=== PATIENT | female | born 1945 | race Caucasian/White ===

== ENCOUNTER → 2018-09-27 | Outpatient (CLI) | payer MEDICAID ==
[2018-09-27 15:19] LABS: ALANINE AMINOTRANSFERASE 17 U/L (0-55); ALKALINE PHOSPHATASE 78 U/L (40-136); BILIRUBIN,TOTAL 0.2 MG/DL (0.1-1.0); BUN/CREATININE RATIO 25; CALCIUM 9.5 MG/DL (8.5-10.1); CARBON DIOXIDE 30 MMOL/L (21-32); CHLORIDE 98 MMOL/L (98-107); CREATININE SERUM 0.61 MG/DL (0.60-1.30); GFR ESTIMATED > 60; GLUCOSE 106 MG/DL (70-105); POTASSIUM 3.9 MMOL/L (3.6-5.0); SODIUM 139 MMOL/L (135-145)
[2018-09-27 15:20] LABS: ALBUMIN 4.1 GM/DL (3.2-4.5)
[2018-09-27 20:28] LABS: CHOLESTEROL 150 MG/DL (< 200); HDL CHOLESTEROL 49 MG/DL (40-60); TRIGLYCERIDES 106 MG/DL (<150); VLDL CHOLESTEROL 21 MG/DL (5-40)
== END ==
LOC: LAB FS 13:29
PROVIDERS: ATTEND Pediatrics
DX: E78.00 Pure hypercholesterolemia, unspecified (principal)
CPT/HCPCS: 36415; 80053; 80061

== ENCOUNTER → 2021-11-18 | Outpatient (CLI) | payer MEDICAID ==
--- NOTE | 2021-11-18 11:02 | Diagnostic Imaging Report ---
INDICATION: Pelvic pain. Time of Exam: 10:11 AM Femoral acetabular alignment is normal bilaterally. Both femoral heads and necks are intact. Rami are intact. No fractures are seen. IMPRESSION: No acute abnormality is detected. Dictated by: Dictated on workstation # [id number]
--- NOTE | 2021-11-18 11:45 | Diagnostic Imaging Report ---
INDICATION: Back pain. TIME OF EXAM: 10:12 a.m. TECHNIQUE: Three views of the lumbar spine were obtained. FINDINGS: Curvature and alignment is normal. Lumbar vertebral body heights are well maintained without evidence of an acute compression fracture. There is some degenerative disc disease at the L2-L3 level with mild disc space narrowing. The aorta is heavily calcified. There does appear to be some wedging of the T12 vertebral body, not well seen on this study. IMPRESSION: Lumbar spondylosis without acute compression fracture. There does appear to be some anterior wedging of the T12 vertebral body, age indeterminate. If there is concern for compression fracture, MRI could be performed for further evaluation. Dictated by: Dictated on workstation # [id number]
== END ==
LOC: RAD FS 09:44
PROVIDERS: ATTEND Nurse Practitioner
DX: M47.816 Spondylosis without myelopathy or radiculopathy, lumbar region (principal); R10.2 Pelvic and perineal pain
CPT/HCPCS: 72100; 72170

== ENCOUNTER 2021-11-26 17:42 | Emergency (ER) | payer MEDICAID ==
[~2021-11-26] VITALS: Ht 165 cm; Wt 65.0 kg
[2021-11-26 17:50] VITALS: BP 141/76
--- NOTE | 2021-11-26 17:56 | ED Lower Extremity ---
General Chief Complaint: Back Problems Stated Complaint: L SIDE HIP PAIN Nursing Triage Note: Patient has presented by EMS with cc of left lower back pain, left hip pain, going down left leg. Patient reports that 12 days ago her commode broke and she strained getting back into the wheel chair. She has seen Kyaw Penny 10 days ago and went to therapy today. SHe has been taking hydrocodone for the pain. Source: patient, EMS Exam Limitations: no limitations History of Present Illness Date Seen by Provider: Nov 26, 2021 Time Seen by Provider: 17:45 Initial Comments 76-year-old female with past medical history of chronic orthopedic pain coming in due to left hip pain. Started over 10 days ago after she slipped on a commode. She saw Kywa Penny and had x-rays obtained. She has been going to therapy which has not helped much. Taking hydrocodone for the pain and had Tylenol recently as well. She says she does not want to constantly be taking pain medicine so she called EMS. EMS reports she is on an electric wheelchair for ambulation and she says this is because of chronic right knee pain. She denies any new weakness, numbness, bowel or bladder issues, new trauma since her most recent x-ray, or any other concerns. Allergies and Home Medications Allergies Coded Allergies: doxycycline (Verified Allergy, Unknown, 11/26/21) Patient Home Medication List Home Medication List Reviewed: Yes Review of Systems Constitutional: No fever EENTM: No blurred vision Respiratory: No cough Cardiovascular: No chest pain Gastrointestinal: No abdominal pain Genitourinary: no symptoms reported Musculoskeletal: see HPI Skin: no symptoms reported Psychiatric/Neurological: No Symptoms Reported All Other Systems Reviewed Negative Unless Noted: Yes Past Rseuosn-Oyxtob-Neeqrx Hx Patient Social History Tobacco Use?: No Use of E-Cig and/or Vaping dev: No Substance use?: No Alcohol Use?: No Pt feels they are or have been: Unable to obtain Past Medical History Surgeries: No Physical Exam Vital Signs Vital Signs - First Documented 11/26/21 17:50 Temp 36.5 Pulse 120 Resp 16 B/P (MAP) 141/76 (97) Pulse Ox 95 O2 Delivery Room Air Capillary Refill : Height, Weight, BMI Height: '" Weight: lbs. oz. kg; 23.00 BMI Method: General Appearance: WD/WN, no apparent distress HEENT: PERRL/EOMI, normal ENT inspection, pharynx normal Neck: non-tender, full range of motion, supple, normal inspection Cardiovascular: regular rate, rhythm, no edema, no murmur Respiratory: chest non-tender, lungs clear, normal breath sounds, no respiratory distress, no accessory muscle use Gastrointestinal: normal bowel sounds, non tender, soft; No distended, No guarding, No rebound Back: normal inspection, no CVA tenderness, no vertebral tenderness Hips: bilateral hip normal inspection, bilateral hip normal range of motion, bilateral hip no evidence of injury; left hip soft tissue tenderness (Pain over the greater trochanter of the left hip) Neurologic/Tendon: normal sensation, normal motor functions Neurologic/Psychiatric: no motor/sensory deficits, alert, normal mood/affect Skin: normal color, warm/dry Lymphatic: no adenopathy Procedures/Interventions Progress Patient was verbally consented for left-sided greater trochanter injection. The area was palpated and anatomical landmarks were identified. The area was cleaned, and a 22-gauge needle was inserted over the area of the greater trochanter. No blood return with where the needle was placed and the was an incremental injection of 40 mg in 1mL of Depo-Medrol and 5 mL of 0.5% bupivacaine. Patient tolerated the procedure well with no complications. Progress/Results/Core Measures Results/Orders My Orders Orders - GAVIN EUBANKS MD Methylprednisolone Acetate Inj (Depo-Med (11/26/21 18:00) Bupivacaine 0.5% Injection (Sensorcaine (11/26/21 18:00) Cyclobenzaprine Tablet (Flexeril Tablet) (11/26/21 18:00) Ketorolac Injection (Toradol Injection) (11/26/21 18:00) Medications Given in ED Current Medications Medications Dose Ordered Sig/Gary Route Start Time Stop Time Status Last Admin Dose Admin Bupivacaine HCl 30 ml ONCE ONCE INJ 11/26/21 18:00 11/26/21 18:01 DC 11/26/21 18:52 30 ML Ketorolac Tromethamine 15 mg ONCE ONCE IM 11/26/21 18:00 11/26/21 18:01 DC 11/26/21 18:33 15 MG Methylprednisolone Acetate 40 mg ONCE ONCE IA 11/26/21 18:00 11/26/21 18:01 DC 11/26/21 18:45 40 MG Vital Signs/I&O 11/26/21 17:50 Temp 36.5 Pulse 120 Resp 16 B/P (MAP) 141/76 (97) Pulse Ox 95 O2 Delivery Room Air Blood Pressure Mean: 97 Progress Progress Note : Progress Note 76-year-old female with above history coming in due to left hip pain. ABCs were intact and vitals were stable on presentation. Neuro exam is normal including normal strength and no numbness. She has no red flags for low back pain. No pain with logroll on exam, no significant pain with range of motion of the hip, but she does have significant pain over her greater trochanter on the left which recreates her symptoms. I offered her a steroid injection over her greater trochanter which she tolerated well. I will have her follow-up with Kyaw Penny again and have her continue her physical therapy. I believe she is otherwise stable for discharge with outpatient follow-up. She was sent home with strict return precautions. Departure Impression Primary Impression: Greater trochanteric pain syndrome of left lower extremity Disposition: HOME, SELF-CARE Condition: Stable Departure-Patient Inst. Decision time for Depature: 18:49 Referrals: KHUSHBOO ROJAS MD (PCP/Family) Primary Care Physician AMANDA PENNY Patient Instructions: Hip Bursitis (DC) Add. Discharge Instructions: The steroid shot should start helping in the next day or so. We also gave you an anti-inflammatory which will likely start helping with the pain tonight. Continue to take the hydrocodone as prescribed for your pain. It is important that you follow-up with physical therapy as that is likely going to help with the most, and follow-up with Kyaw Penny. Scripts Cyclobenzaprine HCl (Cyclobenzaprine HCl) 10 Mg Tablet 10 MG PO Q8H PRN for SPASMS for 5 Days, #15 TAB 0 Refills Prov: GAVIN EUBANKS MD 11/26/21 GAVIN EUBANKS MD Nov 26, 2021 17:56
[2021-11-26] MEDS ORDERED: KETOROLAC 30 MG/ML VIAL IM ONE (18:00)
[2021-11-26] MEDS ORDERED: BUPIVACAINE 0.5% 30 ML (SENSORCAINE) VIAL INJ ONE (18:00)
[2021-11-26] MEDS ORDERED: methylPREDNISolone 40 MG/ML (DEPO MEDROL) VIAL IA ONE (18:00)
[2021-11-26] MEDS ORDERED: CYCLOBENZAPRINE 10 MG (FLEXERIL) TAB PO STA (18:00)
[2021-11-26] MEDS ORDERED: CYCL10TA25 PO (19:38)
== END 2021-11-26 19:33 | disposition home or self-care (01) ==
LOC: EDUNIT# 17:42 → ER FS 17:43
DX: M79.605 Pain in left leg (principal)
CPT/HCPCS: 99284

== ENCOUNTER → 2021-12-08 | Outpatient (CLI) | payer MEDICAID ==
[~2021-12-08] MED LIST: CYCL10TA25 PO
--- NOTE | 2021-12-08 11:02 | Diagnostic Imaging Report ---
INDICATION: PAIN IN LEFT LOWER LEG TECHNIQUE: 2 views of the left hip. CORRELATION STUDY: None FINDINGS: Images of the hip demonstrate no evidence for acute fracture. Alignment is anatomic. The femoral head acetabular relationship is unremarkable. The bony trabecular pattern is intact. IMPRESSION: 1. Negative for acute bony abnormality of the left hip. Dictated by: Dictated on workstation # [id number]
--- NOTE | 2021-12-08 12:47 | Diagnostic Imaging Report ---
KNEE 3 VIEW LEFT COMPARISON: None available. INDICATION: Left knee pain TECHNIQUE: Non-weight bearing AP, oblique, and lateral views of the left knee. FINDINGS: No fracture or traumatic malalignment. The joint spaces are well maintained. No joint effusion or mineralized joint bodies. A few scattered vascular calcifications are noted. IMPRESSION: No osseous abnormality about the left knee to account for pain. Dictated by: Dictated on workstation # [id number]
--- NOTE | 2021-12-08 12:54 | Diagnostic Imaging Report ---
FEMUR 2 VIEW LEFT INDICATION: Pain in the left leg. COMPARISON: None available. TECHNIQUE: 2 views of left femur FINDINGS: Diffuse osseous demineralization. No fracture or concerning focal osseous lesion. 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 No knee joint effusion. A few scattered vascular calcifications are noted. IMPRESSION: No osseous abnormality in the left femur to account for pain. Dictated by: Dictated on workstation # [id number]
== END ==
LOC: RAD FS 09:20
PROVIDERS: ATTEND Nurse Practitioner
DX: M79.662 Pain in left lower leg (principal); M25.562 Pain in left knee
CPT/HCPCS: 73502; 73552; 73562

== ENCOUNTER → 2022-06-02 | Outpatient (CLI) | payer MEDICAID | LOC: RAD FS 09:53 | PROVIDERS: ATTEND Nurse Practitioner | DX: M19.012 Primary osteoarthritis, left shoulder (principal); M54.2 Cervicalgia ==

== ENCOUNTER → 2022-06-28 | Outpatient (CLI) | payer MEDICAID ==
--- NOTE | 2022-06-28 16:14 | Diagnostic Imaging Report ---
INDICATION: Left shoulder pain. TECHNIQUE: AP, oblique, transscapular, and transaxillary views of the left shoulder were obtained. FINDINGS: No fracture or acute bony abnormality is seen. There is moderate degenerative change of the AC joint and glenohumeral joint. There is a chronic calcification adjacent to the acromion. IMPRESSION: There are degenerative changes as described above with no acute appearing abnormality. Dictated by: Dictated on workstation # [id number]
== END ==
LOC: RAD FS 08:43
PROVIDERS: ATTEND Nurse Practitioner
DX: M19.012 Primary osteoarthritis, left shoulder (principal)
CPT/HCPCS: 73030